=== PATIENT | male | born 1980 | race Caucasian/White ===

== ENCOUNTER 2021-04-23 18:52 | Inpatient (IN) | payer OTHER, SELFPAY ==
[2021-04-23 18:54] VITALS: BP 161/87; PULSE 90; PULSE 93; RESP 28; TEMP 35.8; O2SAT 99; BMI 33.0
--- NOTE | 2021-04-23 19:57 | EX.ED.DYSGE1 ---
HPI History of Present Illness Chief Complaint: Substance Abuse Informant: patient Narrative Narrative: Patient is a 40-year-old previously healthy male who presents to the emergency department to detox from fentanyl. He states that he has been on this for the past year. He previously used Percocet prior to that. He can use up to 3 g/day. Last time used was this morning. He has been through detox programs before in the past but did not want to go on Suboxone. He is agreeable to this now. He denies any other drug use. No issues with alcohol. He does smoke cigarettes. Patient states that he will smoke the fentanyl. Denies any injection. At this time he is currently asymptomatic. He is complaining of a cold sore otherwise. [facility] Medical History Hypertension Substance abuse Home Medications NK 04/23/21 [History Last Taken Unknown] Allergy/AdvReac Type Severity Reaction Status Date / Time No Known Allergies Allergy Verified 04/23/21 18:58 Family History (Updated 04/23/21 @ 21:[address] Kristopher Kaur MD) Other Hypertension Social History Smoking Status: Current every day smoker tobacco type: cigarettes ROS ROS ED Constitutional Constitutional ED: Denies chills or fever(s) Eyes Eyes: Denies change in vision ENT ENT ED: Denies epistaxis or rhinorrhea Cardiovascular Cardiovascular: Denies chest pain or palpitations Respiratory/Chest Respiratory/Chest: Denies cough, dyspnea or dyspnea on exertion Gastrointestinal Gastrointestinal: Denies abdominal pain, diarrhea, nausea or vomiting Musculoskeletal Musculoskeletal: Denies back pain or neck pain Integumentary Denies rash Neurologic Neurologic: Denies dizziness, headache(s) or weakness EXAM Physical Exam Const Vital Signs: 04/23/21 18:54 Temperature 96.5 F L Temperature Source Temporal Pulse Rate 93 Respiratory Rate 28 H Blood Pressure 161/87 H Blood Pressure Mean 111 Pulse Ox 99 Oxygen Delivery Method Room Air Positive well nourished and well developed General Appearance ED: well developed and NAD HEENT Reports normocephalic, head/scalp atraumatic and moist mucous membranes Eyes PERRL and EOMs intact bilaterally Neck supple Resp normal respiratory effort and clear to auscultation bilaterally Auscultation: Negative for rales, rhonchi or wheezes Cardio regular rate, regular rhythm and no murmurs GI normal to inspection, nondistended, normoactive bowel sounds and non-tender Palpation: soft; Negative for guarding or rebound tenderness present Extremity normal to inspection General Extremety ED: Negative for edema or tenderness General Extremity: Negative for edema Neuro oriented x3, CN's II-XII intact bilaterally and no sensory deficits noted Sensorium / Orientation: alert Motor Exam: strength 5/5 throughout Psych mental status grossly normal Skin no rashes or lesions noted MDM MDM MDM Narrative Medical decision making narrative: Patient presents to the ED to detox from fentanyl. On arrival to the emerge department he is mildly tachypneic but denies any shortness of breath. He otherwise has normal vital signs. He is in no acute distress. Will check basic lab work and discuss case with hospitalist. Patient's work-up did not reveal any significant acute abnormality. Patient otherwise has remained stable throughout ED stay. Will bring into the hospital for further evaluation and management this time. He understands and is agreeable with this plan. Lab Data Labs: Laboratory Results - last 24 hr 04/23/21 04/23/21 04/23/21 20:23 20:25 20:25 WBC 8.4 RBC 5.14 Hgb 13.8 Hct 41.2 MCV 80.2 MCH 26.8 L MCHC 33.5 RDW Std Deviation 35.3 RDW Coeff of Kay 12.3 Plt Count 257 MPV 9.7 Immature Gran % (Auto) 0.400 Neut % (Auto) 57.2 Lymph % (Auto) 31.4 [place] % (Auto) 7.6 Eos % (Auto) 3.0 Baso % (Auto) 0.4 Absolute Neuts (auto) 4.8 Absolute Lymphs (auto) 2.65 Nucleated RBC % 0 Sodium 139 Potassium 4.2 Chloride 104 Carbon Dioxide 32.0 Anion Gap 3 L BUN 12 Creatinine 0.84 Estim Creat Clear Calc 119.24 Est GFR (MDRD) Af Amer 131 Est GFR (MDRD) Non-Af 108 BUN/Creatinine Ratio 14.3 Glucose 101 Calcium 9.1 Total Bilirubin 0.30 AST 29 ALT 56 Alkaline Phosphatase 72 Total Protein 7.4 Albumin 3.8 Globulin 3.6 Albumin/Globulin Ratio 1.1 Urine Opiates Screen NEGATIVE Urine Methadone Screen NEGATIVE Ur Barbiturates Screen NEGATIVE Ur Phencyclidine Scrn NEGATIVE Ur Amphetamines Screen NEGATIVE U Methamphetamin-MDMA NEGATIVE U Benzodiazepines Scrn NEGATIVE Urine Cocaine Screen NEGATIVE U Cannabinoids Screen NEGATIVE Ur Drug Screen Comment Ethyl Alcohol 04/23/21 20:25 WBC RBC Hgb Hct MCV MCH MCHC RDW Std Deviation RDW Coeff of Kay Plt Count MPV Immature Gran % (Auto) Neut % (Auto) Lymph % (Auto) [place] % (Auto) Eos % (Auto) Baso % (Auto) Absolute Neuts (auto) Absolute Lymphs (auto) Nucleated RBC % Sodium Potassium Chloride Carbon Dioxide Anion Gap BUN Creatinine Estim Creat Clear Calc Est GFR (MDRD) Af Amer Est GFR (MDRD) Non-Af BUN/Creatinine Ratio Glucose Calcium Total Bilirubin AST ALT Alkaline Phosphatase Total Protein Albumin Globulin Albumin/Globulin Ratio Urine Opiates Screen Urine Methadone Screen Ur Barbiturates Screen Ur Phencyclidine Scrn Ur Amphetamines Screen U Methamphetamin-MDMA U Benzodiazepines Scrn Urine Cocaine Screen U Cannabinoids Screen Ur Drug Screen Comment Ethyl Alcohol 5.0 Discharge Plan Dx/Rx/DC Orders Clinical Impression: Opioid abuse Disposition Disposition: Acute Care Hospital [facility] Discharge Date/Time: 04/23/21 21:27
[2021-04-23 20:34] LABS: Absolute Lymphocyte Count 2.65 X10^3/uL (0.83-4.51); Absolute Neutrophil Count 4.8 X10^3/uL (2.0-7.7); Basophil# 0.03 X10^3/uL; Basophil% 0.4 % (0-1); Eosinophil# 0.25 X10^3/uL; Hematocrit 41.2 % (40-54); Hemoglobin 13.8 g/dL (13.0-16.5); Lymphocyte # 2.65 X10^3/ul (0.83-4.51); Lymphocyte % 31.4 % (19-41); Mean Corp Hgb Conc 33.5 g/dL (32-36); Mean Corpuscular Hgb 26.8 pg (27.0-32.0); Mean Corpuscular Volume 80.2 fL (80-94); Mean Platelet Vol. 9.7 fl (6.2-12.0); Monocyte# 0.64 X10^3/uL; Monocyte% 7.6 % (0-10); NRBC Flagged by Analyzer 0 % (0-5); Neutrophil # 4.83 X10^3/uL (2.7-7.7); Neutrophil % 57.2 % (47-70); Platelet Count 257 K/mm3 (150-450); RBC Distribution Width CV 12.3 % (11.6-14.6); RBC Distribution Width SD 35.3 fl (35.1-43.9); Red Blood Count 5.14 M/mm3 (4.6-6.2); White Blood Count 8.4 K/mm3 (4.4-11.0)
[2021-04-23 20:52] LABS: ALB/GLOB Ratio 1.1 RATIO (0.9-2.4); AST(SGOT) 29 U/L (15-37); Alanine Aminotransfer ALT/SGPT 56 U/L (16-61); Albumin, Serum 3.8 g/dL (3.2-5.0); Alkaline Phosphatase 72 U/L (45-117); Anion Gap 3 (5-15); BUN 12 mg/dL (7-18); BUN/Creat Ratio 14.3 RATIO (10-20); Calcium,Total 9.1 mg/dL (8.5-10.1); Chloride 104 mmol/L (98-107); Creatinine, Serum 0.84 mg/dL (0.70-1.30); EST Glomerular Filtration Rate 108 mL/min (>60); Est Glom Filt Rate - Afr Amer 131 mL/min (>60); Estimated Creatinine Clearance 119.24 ml/min; Globulin 3.6 g/dL (2.2-4.2); Glucose 101 mg/dL (74-106); Potassium 4.2 mmol/L (3.5-5.1); Protein, Total 7.4 g/dL (6.4-8.2); Sodium Level 139 mmol/L (136-145)
[2021-04-23 21:00] LABS: Amphetamine Urine VISTA NEGATIVE (<1000 ng/mL); Barbiturate Urine VISTA NEGATIVE (< 200 ng/mL); Benzodiazepine Urine VISTA NEGATIVE (< 200 ng/mL); Cocaine Urine VISTA NEGATIVE (< 300 ng/mL); Ecstacy Urine VISTA NEGATIVE (< 500 ng/mL); Methadone Urine VISTA NEGATIVE (< 300 ng/mL); PCP Urine VISTA NEGATIVE (< 25 ng/mL); THC Urine VISTA NEGATIVE (< 50 ng/mL); Vista UDS pH Range 6
--- NOTE | 2021-04-23 21:14 | PCM.HP.STD ---
HPI - General General Date of Admission: 04/23/21 HPI Narrative OZ MEJIA, is a 40 M with a significant history of hypertension tobacco abuse and opioid abuse who presents to the emergency department for desire for drug detoxification. He reported that about 10 years ago that he was using Percocets. History of to a fentanyl about a year ago. He uses from 1 g to 3 g of fentanyl per day. He smokes the fentanyl. Last time he used was about 10 hours prior to presentation. He reports withdrawal symptoms that started for the emergency department. He reports withdrawal symptoms of yawning; muscle aches; tensing of muscles; restless leg; and muscle pain. Patient came in with his ex-girlfriend who is also seeking detoxification. [facility] Medical History Hypertension Substance abuse Home Medications NK 04/23/21 [History Last Taken Unknown] Allergy/AdvReac Type Severity Reaction Status Date / Time No Known Allergies Allergy Verified 04/23/21 18:58 Family History (Updated 04/23/21 @ 21:[address] Kristopher Kaur MD) Other Hypertension no surgical history Social History Smoking Status: Current every day smoker tobacco type: cigarettes ROS ROS Narrative Constitutional: Denies anorexia and change in weight Eyes: Reports watery eyes. Denies blurry vision, change in eye color, change in vision, double vision, erythema, eye pain, loss of vision or other HEENT: Denies abnormal hearing, dysphagia, ear pain, epistaxis, headache(s), hearing loss, nasal congestion, nasal discharge, post nasal drip, sinus pressure, sore throat or other Cardiovascular: Denies chest pain. Denies dyspnea on exertion, orthopnea and paroxysmal nocturnal dyspnea Respiratory/Chest: Denies cough, excessive phlegm production, shortness of breath with exertion and wheezing Gastrointestinal: Denies abdominal pain, coffee ground emesis, constipation, diarrhea, dyspepsia, hematemesis, hematochezia, loose stools, melena, nausea, vomiting or other Genitourinary: Denies burning urination, difficulty urinating, dysuria, hematuria, nocturia, urinary frequency, urinary hesitancy, urinary incontinence, urinary urgency or other Musculoskeletal: Reports muscle aches and tensing of muscles. Neurologic: Denies abnormal gait, abnormal speech, confusion, disequilibrium, dizziness, focal weakness, headache(s), numbness, paresthesias, seizure-like activity, seizures, syncope, tingling, tremor(s) or other Psychiatric: Denies anxiety, depression, homicidal ideation, suicidal ideation or other Endocrinology: Denies change in body appearance, cold intolerance, excessive sweating, heat intolerance, polydipsia, polyuria or other Hematologic/Lymphatic: Denies anemia, easy bleeding, easy bruising, lymphadenopathy or other Integumentary: Denies ulcer on buttocks. Allergic/Immunologic: Denies rhinitis, hives, eczema, asthma or other Vital Signs Vital Signs Vital Signs: 04/23/21 18:54 Temperature 96.5 F L Temperature Source Temporal Pulse Rate 93 Respiratory Rate 28 H Blood Pressure 161/87 H Blood Pressure Mean 111 Pulse Ox 99 Oxygen Delivery Method Room Air Weight Weight: 101.7 kg Body Mass Index (BMI) 33.0 Physical Exam Narrative Physical exam: General: Well-nourished, well-developed, no acute distress Head: Normocephalic, atraumatic, no tenderness Eyes: PERRLA, EOMI ENT, no trauma, moist mucous membranes, no rhinorrhea Neck: Nontender, full range of motion, no spinal tenderness, deformities, step-off CVS: Regular rate and rhythm Respiratory no acute distress, clear to auscultation bilaterally, chest wall nontender, no wheezing Abdomen: Soft, nontender, nondistended, normal bowel sounds, no masses : Deferred Back: Nontender, no CVA tenderness, no midline spinal tenderness, deformities, step-offs Extremities: Nontender full range of motion, no trauma Skin: Normal color, no trauma, abrasions Neuro: Alert, oriented, cranial nerves II through XII grossly intact. Psychiatry: Laughing profusely. Not anxious. Results Lab / Micro Data Result Diagrams: 04/23/21 20:25 04/23/21 20:25 Labs: Laboratory Results - last 24 hr 04/23/21 20:23: Urine Opiates Screen NEGATIVE, Urine Methadone Screen NEGATIVE, Ur Barbiturates Screen NEGATIVE, Ur Phencyclidine Scrn NEGATIVE, Ur Amphetamines Screen NEGATIVE, U Methamphetamin-MDMA NEGATIVE, U Benzodiazepines Scrn NEGATIVE, Urine Cocaine Screen NEGATIVE, U Cannabinoids Screen NEGATIVE, Ur Drug Screen Comment 04/23/21 20:25: WBC 8.4, RBC 5.14, Hgb 13.8, Hct 41.2, MCV 80.2, MCH 26.8 L, MCHC 33.5, RDW Std Deviation 35.3, RDW Coeff of Kay 12.3, Plt Count 257, MPV 9.7, Immature Gran % (Auto) 0.400, Neut % (Auto) 57.2, Lymph % (Auto) 31.4, [place] % (Auto) 7.6, Eos % (Auto) 3.0, Baso % (Auto) 0.4, Absolute Neuts (auto) 4.8, Absolute Lymphs (auto) 2.65, Nucleated RBC % 0 04/23/21 20:25: Sodium 139, Potassium 4.2, Chloride 104, Carbon Dioxide 32.0, Anion Gap 3 L, BUN 12, Creatinine 0.84, Estim Creat Clear Calc 119.24, Est GFR (MDRD) Af Amer 131, Est GFR (MDRD) Non-Af 108, BUN/Creatinine Ratio 14.3, Glucose 101, Calcium 9.1, Total Bilirubin 0.30, AST 29, ALT 56, Alkaline Phosphatase 72, Total Protein 7.4, Albumin 3.8, Globulin 3.6, Albumin/Globulin Ratio 1.1 04/23/21 20:25: Ethyl Alcohol 5.0 Assessment & Plan Assessment/Plan (1) Opioid abuse: (2) Tobacco abuse: (3) HTN (hypertension): QUALIFIERS: Hypertension type: primary hypertension Qualified Code(s): I10 - Essential (primary) hypertension PLAN: The patient is a 40 year old M/F with a significant history of HTN; opioid abuse and tobacco abuse who presents emergency department for help with opioid detoxification. Opioid dependence and withdrawal Patient be started on Subutex and other adjunctive medications: Gabapentin as needed; dicyclomine as needed; Vistaril as needed; methocarbamol as needed; clonidine as needed; Imodium as needed; trazodone as needed and Zofran as needed. Monitor COWS and CINA score CBC was reviewed. CBC is unremarkable. Toxicology was negative for opioids; amphetamines; cocaine and benzos.. Alcohol level was 5.0. Tobacco abuse Counseled Nicotine patch prescribed. Hypertension Blood pressure is not within goal Patient admit history of hypertension. Not on home blood pressure medication. As needed hydralazine ordered. DVT prophylaxis Low risk Encourage to ambulate
[2021-04-23 21:26] VITALS: BP 148/75; PULSE 81; RESP 16; RESP 18; TEMP 36.1; O2SAT 99
[2021-04-23 21:38] VITALS: BMI 31.5
[2021-04-23 21:45] VITALS: BP 157/100; PULSE 69; RESP 16; TEMP 36.5; O2SAT 97
[2021-04-23] MEDS: traZODone 100 MG Tablet PO (22:01)
[2021-04-24 01:28] VITALS: BP 134/82; PULSE 63; RESP 16; TEMP 36.6; O2SAT 97
[2021-04-24] MEDS: hydrOXYzine PAM 25 MG Capsule 50 MG PO ×2 (01:31→09:44)
[2021-04-24] MEDS: Buprenorphine HCl 2 MG TAB.SUBL SL ×3 (02:19→17:35)
[2021-04-24] MEDS: Gabapentin 300 MG Capsule PO ×2 (02:20→12:15)
[2021-04-24] MEDS: Methocarbamol 750 MG Tablet 1500 MG PO ×3 (02:22→17:34)
[2021-04-24] MEDS: cloNIDine HCl 0.1 MG Tablet PO ×2 (03:46→17:34)
[2021-04-24] MEDS: Dicyclomine 10 MG Capsule 20 MG PO ×2 (03:47→17:34)
[2021-04-24] MEDS: LORazepam 1 MG Tablet PO ×4 (04:01→17:34)
[2021-04-24] MEDS: Haloperidol Lactate 5 MG/ML Vial 4 MG IM (04:01)
[2021-04-24 04:10] VITALS: BP 160/97; PULSE 68; RESP 16; TEMP 36.2; O2SAT 95
--- NOTE | 2021-04-24 08:01 | PN.HOSP_ITS ---
Subjective Subjective No issues overnight. Most recent Cina score of 13 Objective Data Objective Data Vital Signs: Vital Signs Temp Pulse Resp BP Pulse Ox 97.2 F L 68 16 160/97 H 95 04/24/21 04:10 04/24/21 04:10 04/24/21 04:10 04/24/21 04:10 04/24/21 04:10 Oxygen Delivery Method Room Air Weight: 219 lb 9.286 oz Body Mass Index (BMI) 31.5 Lab / Micro Data Result Diagrams: 04/23/21 20:25 04/23/21 20:25 Labs: Laboratory Results - last 24 hr 04/23/21 20:23: Urine Opiates Screen NEGATIVE, Urine Methadone Screen NEGATIVE, Ur Barbiturates Screen NEGATIVE, Ur Phencyclidine Scrn NEGATIVE, Ur Amphetamines Screen NEGATIVE, U Methamphetamin-MDMA NEGATIVE, U Benzodiazepines Scrn NEGATIVE, Urine Cocaine Screen NEGATIVE, U Cannabinoids Screen NEGATIVE, Ur Drug Screen Comment 04/23/21 20:25: WBC 8.4, RBC 5.14, Hgb 13.8, Hct 41.2, MCV 80.2, MCH 26.8 L, MCHC 33.5, RDW Std Deviation 35.3, RDW Coeff of Kay 12.3, Plt Count 257, MPV 9.7, Immature Gran % (Auto) 0.400, Neut % (Auto) 57.2, Lymph % (Auto) 31.4, [place] % (Auto) 7.6, Eos % (Auto) 3.0, Baso % (Auto) 0.4, Absolute Neuts (auto) 4.8, Absolute Lymphs (auto) 2.65, Nucleated RBC % 0 04/23/21 20:25: Sodium 139, Potassium 4.2, Chloride 104, Carbon Dioxide 32.0, Anion Gap 3 L, BUN 12, Creatinine 0.84, Estim Creat Clear Calc 119.24, Est GFR (MDRD) Af Amer 131, Est GFR (MDRD) Non-Af 108, BUN/Creatinine Ratio 14.3, Glucose 101, Calcium 9.1, Total Bilirubin 0.30, AST 29, ALT 56, Alkaline Phosphatase 72, Total Protein 7.4, Albumin 3.8, Globulin 3.6, Albumin/Globulin Ratio 1.1 04/23/21 20:25: Ethyl Alcohol 5.0 Physical Exam Const alert, oriented x3 and no apparent distress General Appearance: cooperative HEENT normocephalic Mouth: dry mucous membranes Eyes PERRL, EOMs intact bilaterally and conjunctivae normal Neck supple and no JVD Resp normal respiratory effort, no retractions, no use of accessory muscles and clear to auscultation bilaterally Auscultation: Negative for crackles, rales, rhonchi or wheezes Cardio regular rate, regular rhythm, S1 normal heart sound, S2 normal heart sound and no murmurs GI soft to palpation, non-tender and non-distended; Negative for hepatosplenomegaly Extremity no clubbing, cyanosis or edema Skin no rashes or lesions noted Neuro no focal motor deficits and no sensory deficits noted Psych Appearance: appropriate Mood & Affect: anxious Assessment & Plan Assessment/Plan (1) Opioid abuse: (2) Tobacco abuse: (3) HTN (hypertension): QUALIFIERS: Hypertension type: primary hypertension Qualified Code(s): I10 - Essential (primary) hypertension PLAN: 1. Opiate withdrawal/tobacco abuse -Continue with the opiate withdrawal protocol -Counseled on tobacco cessation -Continue with nicotine patch plan for follow-up with 180 as an outpatient 2. Hypertension -Does not seem to be taking any medications for this -He is on as needed hydralazine here, can place him on Norvasc DVT: Ambulation Charges/Coding Visit Charges Inpatient E&M: 67388 Subs Hosp L2
[2021-04-24 08:10] VITALS: BP 159/84; PULSE 71; RESP 16; TEMP 36.9; O2SAT 97
[2021-04-24] MEDS: amLODIPine 10 MG Tablet PO (09:46)
--- NOTE | 2021-04-24 10:54 | ADDICTION ---
This medical underwriter attempted to meet with PT. PT did not rouse to verbal queuing. PT's nurse reported that he was given medications last night that may be making him lethargic today. This medical underwriter will attempt to meet with PT on 04/24/21.
[2021-04-24 12:10] VITALS: BP 140/80; PULSE 70; RESP 16; TEMP 36.7; O2SAT 96
[2021-04-24 18:10] VITALS: BP 131/79; PULSE 64; RESP 16; TEMP 36.7; O2SAT 97
[2021-04-24 21:28] VITALS: BP 167/95; PULSE 82; RESP 16; TEMP 37.5; O2SAT 98
[2021-04-25] MEDS: Buprenorphine HCl 2 MG TAB.SUBL SL ×3 (02:23→17:57)
[2021-04-25 02:24] VITALS: BP 152/87; PULSE 62; RESP 16; TEMP 37.6; O2SAT 96
--- NOTE | 2021-04-25 08:30 | ADDICTION ---
This technical document writer met with PT to conduct ASAM, MSE, DUDIT assessments and to plan for d/c. All assessments completed. PT declined coordination for treatment post d/c from [facility]. PT was provided with agency information for treatment in his residential area. PT reports that he has independent transportation.
[2021-04-25] MEDS: cloNIDine HCl 0.1 MG Tablet PO ×2 (09:18→16:10)
[2021-04-25] MEDS: Gabapentin 300 MG Capsule PO ×2 (09:18→16:10)
[2021-04-25] MEDS: LORazepam 1 MG Tablet PO ×3 (09:18→16:10)
[2021-04-25 09:21] VITALS: BP 149/89; PULSE 82; RESP 18; TEMP 36.7; O2SAT 98
[2021-04-25] MEDS: amLODIPine 10 MG Tablet PO (12:21)
[2021-04-25] MEDS: hydrOXYzine PAM 25 MG Capsule 50 MG PO (12:28)
--- NOTE | 2021-04-25 13:45 | PCM.PN.HOSP ---
Subjective Subjective Feels like his feeling of his skin and wants a higher dose of his buprenorphine, most recent Cina score of 7 Objective Data Objective Data Vital Signs: Vital Signs Temp Pulse Resp BP Pulse Ox 98.0 F 82 18 149/89 H 98 04/25/21 09:21 04/25/21 09:21 04/25/21 09:21 04/25/21 09:21 04/25/21 09:21 Oxygen Delivery Method Room Air Weight: 219 lb 9.286 oz Body Mass Index (BMI) 31.5 Lab / Micro Data Result Diagrams: 04/23/21 20:25 04/23/21 20:25 Physical Exam Const alert, oriented x3 and no apparent distress HEENT normocephalic Eyes PERRL, EOMs intact bilaterally and conjunctivae normal Neck supple and no JVD Resp normal respiratory effort, no retractions, no use of accessory muscles and clear to auscultation bilaterally Auscultation: Negative for crackles, rales, rhonchi or wheezes Cardio regular rate, regular rhythm, S1 normal heart sound, S2 normal heart sound and no murmurs GI soft to palpation, non-tender and non-distended; Negative for hepatosplenomegaly Extremity no clubbing, cyanosis or edema Skin no rashes or lesions noted Neuro no focal motor deficits and no sensory deficits noted Psych Appearance: appropriate Mood & Affect: anxious Assessment & Plan Assessment/Plan (1) Opioid abuse: (2) Tobacco abuse: (3) HTN (hypertension): QUALIFIERS: Hypertension type: primary hypertension Qualified Code(s): I10 - Essential (primary) hypertension PLAN: 1. Opiate withdrawal/tobacco abuse -Continue with the opiate withdrawal protocol -Counseled on tobacco cessation -Continue with nicotine patch plan for follow-up with 180 as an outpatient 2. Hypertension -Does not seem to be taking any medications for this -He is on as needed hydralazine here, can place him on Norvasc DVT: Ambulation Charges/Coding Visit Charges Inpatient E&M: 64991 Subs Hosp L2
[2021-04-25 14:17] VITALS: BP 131/82; PULSE 80; RESP 18; TEMP 36.6; O2SAT 96
[2021-04-25 16:12] VITALS: BP 149/96; PULSE 90; RESP 16; TEMP 36.6; O2SAT 99
[2021-04-25 22:31] VITALS: BP 132/83; PULSE 100; RESP 18; TEMP 37.1; O2SAT 97
[2021-04-26] MEDS: Dicyclomine 10 MG Capsule 20 MG PO (02:15)
[2021-04-26] MEDS: traZODone 100 MG Tablet PO (02:15)
[2021-04-26] MEDS: Buprenorphine HCl 2 MG TAB.SUBL SL (02:17)
[2021-04-26 02:19] VITALS: BP 133/93; PULSE 78; RESP 18; TEMP 36.4; O2SAT 96
[2021-04-26] MEDS: LORazepam 1 MG Tablet PO ×2 (02:28→08:08)
[2021-04-26] MEDS: Methocarbamol 750 MG Tablet 1500 MG PO (02:32)
[2021-04-26 08:06] VITALS: BP 120/98; PULSE 81; RESP 16; TEMP 36.7; O2SAT 98
[2021-04-26] MEDS: amLODIPine 10 MG Tablet PO (08:08)
--- NOTE | 2021-04-26 08:30 | NURSING ---
AGENT PRODUCER reports pt anxious, stating, I just want to get high. Pt given Ativan recently. Pt pacing in hallways looking for significant other who is a pt upstairs. Pt decides to sign out AMA-copy of AMA paperwork given to pt. Pt belongings returned to pt. notified by studio operations engineer in charge of AMA. Pt escorted out by security operations center operator.
--- NOTE | 2021-04-26 16:00 | DS.PCM_ITS ---
Providers Date of Admission: 04/23/21 Primary Care Physician: [facility] Reason For Visit: DESIRE FOR DETOXIFICATION Diagnosis Discharge Diagnosis (1) Opioid abuse: Status: Acute Code(s): F11.10 - Opioid abuse, uncomplicated (2) Tobacco abuse: Status: Acute Code(s): Z72.0 - Tobacco use (3) HTN (hypertension): Status: Chronic Code(s): I10 - Essential (primary) hypertension Qualifiers: Hypertension type: primary hypertension Qualified Code(s): I10 - Essential (primary) hypertension Medications at Discharge Home Medications NK 04/23/21 Hospital Course Summary of Care Provided Hospital Course: This 32-year-old patient with history of chronic tobacco use was admitted through ER for acute opioid withdrawal syndrome and medical stabilization. Patient was admitted in PCU. Started on buprenorphine along with other supportive medications which includes gabapentin, dicyclomine, Vistaril, methocarbamol, clonidine, Imodium, Zofran and trazodone as needed. COWS and LOAN MANAGER score monitoring. Alcohol level 5. In the morning today, patient decided to sign AMA. Risk of signing AMA explained but patient is reluctant to make his own decision. Physical Exam Narrative As per last note patient PARISH a score 7. Blood pressure 120/98. Patient wants to sign AMA. Advised to stay in the hospital home complete for treatment regimen of buprenorphine. Physical exam General: Alert, Oriented x3, Cooperative HEENT: Atraumatic, PERRLA, EOMI, Normocephalic Oral: No Gingival or Mucosal Lesions/ Ulcerations Neck: Supple, No JVD, Negative Carotid Bruits Lungs: Air entry equal in bilateral lung bases. No crepitation/rhonchi Cardiovascular: Regular rate, Regular Rhythm, Normal S1, Normal S2, No murmurs Abdomen: Bowel Sounds Present, Soft, Non Tender, Non-Distended : No renal angle tenderness. No suprapubic tenderness. Extremities: No edema, Capillary Refill Less than 3 Seconds Skin: No rashes, No breakdown Musculoskeletal: No Tenderness to Palpation of Joints or Extremities Neurological: Cranial nerves II-XII grossly intact, Deep Tendon Reflexes 2+/4 and Symmetrical, Neuro grossly intact Psych/Mental Status: Mild anxious Weight / BMI Weight Weight: 219 lb 9.286 oz Body Mass Index (BMI) 31.5 ABG / Lab / Microbiology Data Result Diagrams: 04/23/21 20:25 04/23/21 20:25 Meaningful Use Info Meaningful Use Diagnoses (Choose all that apply): None applicable Discharge Plan Admission Admit Date/Time: 04/23/21 21:12 Attending Provider: Elmo Daley Primary Care Provider: [facility] Discharge Orders/Prescriptions Prescriptions: No Action NK RF: 0 [facility]errals [facility] [Primary [facility] Provider[facility] - Disposition Disposition (needs filled in before D/C Order can be placed): Against Medical Advice Charges/Coding Visit Charges Inpatient E&M: 07118 Disch Hosp
== END 2021-04-26 08:41 | disposition left against medical advice (07) | DRG 894 ==
LOC: ED 20:39 → PCU 21:22
PROVIDERS: Admitting Provider Hospitalist; Emergency Provider Emergency Medicine; Visit Provider Internal Medicine
DX: F11.23 Opioid dependence with withdrawal (principal); I10 Essential (primary) hypertension; F17.210 Nicotine dependence, cigarettes, uncomplicated; Z53.21 Procedure and treatment not carried out due to patient leaving prior to being seen by health care provider
CPT/HCPCS: 36415; 80053; 80307; 82077; 85025; 99283